=== PATIENT | male | born 1975 | race Caucasian/White ===

== ENCOUNTER 2019-11-09 03:10 | Emergency (ER) | payer OTHER ==
[2019-11-09] MEDS ORDERED: DIPH,PERTUS(ACELL)TETVAC-LF 0.5 ML VIAL IM ONE (03:21)
[2019-11-09 03:27] VITALS: BP 116/69; PULSE 86; RESP 18; TEMP 98
--- NOTE | 2019-11-09 03:48 | XR ---
EXAMINATION TYPE: XR hand complete RT DATE OF EXAM: 11/09/2019 COMPARISON: NONE HISTORY: Middle finger laceration TECHNIQUE: 3 views FINDINGS: There are bandages around the middle finger. I see no acute fracture nor dislocation. There is deformity of the fifth metacarpal related to old healed fracture. There is no evidence of radiopa que foreign body. IMPRESSION: No acute fracture seen. No evidence of a foreign body.
--- NOTE | 2019-11-09 04:00 | ED ---
General Adult HPI - General Chief complaint: Wound/Laceration Stated complaint: Finger Laceration Time Seen by Provider: 11/09/19 03:22 Source: patient, RN notes reviewed, old records reviewed Mode of arrival: ambulatory Limitations: no limitations - History of Present Illness Initial comments: 44-year-old male presents emergency department today with chief complaint of a finger laceration. Patient reports that he cut the right middle interphalangeal joint finger with a blade. Patient reports that he was trying to cut [place] and [place]. Patient states that he believes his tetanus shot is up-to-date. He reports full range of motion of the finger. He states that he wrapped to the hand up and continued to bleed and he went through 2 bags of paper towel around his hand. Patient states that he has normal sensation distally. - Related Data Allergies Allergy/AdvReac Type Severity Reaction Status Date / Time Penicillins Allergy Anaphylaxis Verified 11/09/19 03:44 Review of Systems ROS Statement: Those systems with pertinent positive or pertinent negative responses have been documented in the HPI. ROS Other: All systems not noted in ROS Statement are negative. Past Medical History Past Medical History: No Reported History History of Any Multi-Drug Resistant Organisms: None Reported Past Surgical History: No Surgical Hx Reported Smoking Status: Current every day smoker Past Alcohol Use History: Occasional Past Drug Use History: Marijuana General Exam - General Exam Comments Initial Comments: 44-year-old male. Alert and oriented 3. No significant distress. Limitations: no limitations General appearance: alert, in no apparent distress Head exam: Present: atraumatic, normocephalic, normal inspection Eye exam: Present: normal appearance, PERRL, EOMI. Absent: scleral icterus, conjunctival injection, periorbital swelling ENT exam: Present: normal exam, mucous membranes moist Neck exam: Present: normal inspection. Absent: tenderness, meningismus, lymphadenopathy Respiratory exam: Present: normal lung sounds bilaterally. Absent: respiratory distress, wheezes, rales, rhonchi, stridor Cardiovascular Exam: Present: regular rate, normal rhythm, normal heart sounds. Absent: systolic murmur, diastolic murmur, rubs, gallop, clicks GI/Abdominal exam: Present: soft, normal bowel sounds. Absent: distended, tenderness, guarding, rebound, rigid Extremities exam: Present: normal inspection, full ROM, normal capillary refill. Absent: tenderness, pedal edema, joint swelling, calf tenderness Right Forearm Wrist exam: Present: normal inspection, full ROM Hand Wrist exam: Present: full ROM, laceration (Patient has a flap laceration over the middle interphalangeal joint measuring 2 cm x 1 cm. There is evidence of arterial laceration.). Absent: normal inspection Neuro motor exam: Present: wrist extension intact, thumb opposition intact, thumb IP flexion intact, thumb adduction intact, fingers 2-5 abduction intact Vascular: Present: normal capillary refill Back exam: Present: normal inspection Neurological exam: Present: alert, oriented X3, CN II-XII intact Psychiatric exam: Present: normal affect, normal mood Skin exam: Present: warm, dry, intact, normal color. Absent: rash Course Vital Signs 11/09/19 11/09/19 03:23 03:45 Temperature 98 F Pulse Rate 86 Respiratory 18 Rate Blood Pressure 116/69 116/69 O2 Sat by Pulse 97 Oximetry Procedures - Laceration Laceration #1 Site: hand (Right middle finger) Size (cm): 3 Description: flap Depth: simple, single layer Anesthetic Used: lidocaine 1% Anesthesia Technique: local infiltration Amount (mls): 5 Pre-repair: wound explored, irrigated extensively Type of Sutures: nylon Size of Sutures: 5-0, 6-0 Number of Sutures: 7 (2 figure of 8 absorbable sutures, and 5 non absorbable suture) Technique: simple, interrupted Patient Tolerated Procedure: well, no complications Medical Decision Making - Medical Decision Making 44-year-old male presents returns today with a laceration over his right middle finger. He cut with a knife. Limbs tetanus is up-to-date. Patient had full range of motion of the finger. No evidence of tendon involvement. He did have a small arterial bleed that was closed with 2 absorbable sutures. Patient had 5 external sutures placed finger. He has normal capillary refill. Patient reports that he cut it earlier this evening around midnight and went through multiple bags of paper towel around his hand. Patient was feeling slightly lightheaded upon arriving to emergency department as well. Was given IV fluids and left CBC was reviewed. X-ray shows no evidence of foreign body. Discussed monitoring for infection including redness swelling or drainage. Discussed suture care. - Radiology Data Radiology results: report reviewed She has no acute fracture seen. No evidence of foreign body. Disposition Clinical Impression: Finger laceration Disposition: HOME SELF-CARE Condition: Good Instructions (If sedation given, give patient instructions): Finger Laceration (ED) Additional Instructions: Please return to the emergency room in 8-10 days to have sutures removed. Please leave wound covered for the first 24-48 hours and then leave open to air after that time. Please use clean soap and water to clean the suture area to prevent scabbing over the top of your sutures. Please watch for any signs of infection which may include but not limited to increased pain, swelling, redness, fever or chills. Please return to the emergency room if any signs of infection do occur. Please return to the emergency room for any other concerns or complications. Is patient prescribed a controlled substance at d/c from ED?: No Referrals: None,Stated [Primary Care Provider] - 1-2 days Time of Disposition: 03:59
[2019-11-09 04:40] LABS: Basophils # (A) 0.1 k/uL (0-0.2); Basophils % (A) 1 %; Eosinophils # (A) 0.1 k/uL (0-0.7); Eosinophils % (A) 1 %; HCT 48.6 % (39.0-53.0); HGB 16.6 gm/dL (13.0-17.5); Lymphocytes # (A) 3.6 k/uL (1.0-4.8); Lymphocytes % (A) 37 %; MCH 31.1 pg (25.0-35.0); MCHC 34.1 g/dL (31.0-37.0); Mean Platelet Volume 6.7; Monocytes # (A) 0.8 k/uL (0-1.0); Monocytes % (A) 8 %; Neutrophils # (A) 4.9 k/uL (1.3-7.7); Neutrophils % (A) 50 %; Platelet Count 376 k/uL (150-450); RBC 5.34 m/uL (4.30-5.90); RDW 12.8 % (11.5-15.5); WBC 9.7 k/uL (3.8-10.6)
== END 2019-11-09 04:20 | disposition home or self-care (01) ==
LOC: EC 03:10
DX: S61.212A Laceration without foreign body of right middle finger without damage to nail, initial encounter (principal); F17.200 Nicotine dependence, unspecified, uncomplicated; Z88.0 Allergy status to penicillin; W26.8XXA Contact with other sharp object(s), not elsewhere classified, initial encounter
CPT/HCPCS: 12002; 36415; 85025; 99284